=== PATIENT | male | born 1945 | race African-American/Black ===

== ENCOUNTER 2019-06-23 11:08 | Observation (INO) ==
[2019-06-23] MEDS ORDERED: COCAINE SUBSTITUTE 30 ML BOTTLE TOP ONE (11:31)
[2019-06-23] MEDS ORDERED: SILVER NITRATE STICK 1 EACH TOP STA (11:58)
[2019-06-23 11:59] LABS: Eosinophils # 0.1 10*3/uL (0.0-0.87); Eosinophils % 3.9 % (0.00-10.9); Hematocrit 24.5 VOL% (42.0-52.0); Immature Granulocytes % 0.5 %; Immature Granulocytes Absolute 0.01 #; Lymphocytes # 0.6 10*3/uL (1.4-4.0); Mean Corpuscular HGB Conc 32.7 GM/DL (32-36); Mean Corpuscular Volume 92.5 FL (87-102); Mean Platelet Volume 9.2 FL (9.6-12.0); Monocytes % 19.3 % (1.7-12.7); Neutrophils % 47.3 % (38.7-73.9); Platelet Count 110 T/CUMM (130-400); Red Blood Count 2.65 MC/CUMM (3.8-5.5); Red Cell Distribution Width 13.9 % (9.3-17.3); White Blood Count 2.1 T/CUMM (4-12)
[2019-06-23 12:11] LABS: Calcium 9.3 MG/DL (8.5-10.1); Osmolality,Calculated 279.8 MOS/KG (273-304)
[2019-06-23 12:25] LABS: Atypical Lymphocytes Few; Eosinophils 4 % (0-10); Hypochromasia 1+; Lymphocytes 25 % (20-55); Segmented Neutrophils 52 % (50-85); Total Cells Counted 100
[2019-06-23 12:26] LABS: Microcytosis Slight; Ovalocytes Slight; Polychromasia Slight
[2019-06-23 12:27] LABS: Platelet Estimate Adequate
[2019-06-23] MEDS ORDERED: guaiFENesin/CODEINE 5 ML LIQUID PO PRN (14:38)
[2019-06-23] MEDS ORDERED: traMADol 50 MG TABLET PO PRN (14:38)
[2019-06-23] MEDS ORDERED: DOCUSATE SODIUM 100 MG CAPSULE PO PRN (14:38)
[2019-06-23] MEDS ORDERED: PROCHLORPERAZINE 10 MG TABLET PO PRN (14:38)
[2019-06-23] MEDS ORDERED: FILGRASTIM-SNDZ 300 MCG/0.5 ML SYRINGE SUBCUT ONE (14:43)
[2019-06-23] MEDS ORDERED: SODIUM CHLORIDE 0.9% 1,000 ML IV PRN ×2 (14:45→22:15)
[2019-06-23] MEDS ORDERED: diphenhydrAMINE CAP 25 MG CAPSULE PO STA ×2 (14:45→22:51)
[2019-06-23] MEDS ORDERED: hydrALAZINE 25 MG TABLET PO SCH ×2 (15:00→21:00)
[2019-06-23] MEDS ORDERED: FUROSEMIDE 20 MG/2 ML VIAL IV ONE ×2 (15:00→22:57)
[2019-06-23] MEDS ORDERED: ACETAMINOPHEN 325 MG TABLET PO ONE (15:00)
[2019-06-23] MEDS ORDERED: GLUCAGON 1 MG VIAL IM PRN (15:33)
[2019-06-23] MEDS ORDERED: DEXTROSE 10% 250 ML BAG IV PRN (15:33)
[2019-06-23] MEDS: INSULIN REGULAR 100 UNIT/ML SUBCUT SCH ×2 (16:59→21:22)
[2019-06-23] MEDS: FILGRASTIM-SNDZ 300 MCG/0.5 ML SYRINGE SUBCUT SCH ×2 (17:34→17:36)
[2019-06-23] MEDS: GABAPENTIN 300 MG CAPSULE PO SCH ×2 (17:39→21:20)
[2019-06-23] MEDS ORDERED: ASPIRIN EC 81 MG TABLET PO SCH (21:00)
[2019-06-23] MEDS: MAGNESIUM CHLORIDE 64 MG TABLET PO SCH (21:20)
[2019-06-23] MEDS: PANTOPRAZOLE 40 MG TABLET PO SCH (21:20)
[2019-06-23] MEDS: carvediloL 25 MG TABLET PO SCH (21:20)
[2019-06-23] MEDS: LIOTHYRONINE 25 MCG TABLET PO SCH (21:20)
[2019-06-23] MEDS ORDERED: ACETAMINOPHEN 325 MG TABLET PO STA (22:54)
[2019-06-24 03:08] LABS: Alanine Aminotransferase 14 U/L (16-61); Albumin 2.6 G/DL (3.4-5.0); Alkaline Phosphatase 48 U/L (45-117); Aspartate Amino Transferase 10 U/L (0-37); Bilirubin,Total < 0.39 MG/DL (0.2-1.0); Blood Urea Nitrogen 22 MG/DL (7-18); Calcium 8.7 MG/DL (8.5-10.1); Estimated Glom Filtration Rate 109 ML/MIN; Glucose 138 MG/DL (74-106); Osmolality,Calculated 281.5 MOS/KG (273-304); Total Protein 6.3 G/DL (6.4-8.3)
[2019-06-24 03:47] LABS: Apearance,Urine CLEAR (Clear); Bacteria,Urine Occasional /HPF (Few); Bilirubin,Urine Negative (Negative); Blood, Urine Negative (Negative); Glucose,Urine (UA) Negative (Negative); Ketones,Urine Negative (Negative); Mucus,Urine Occasional /LPF (Occasional); Nitrite,Urine Negative (Negative); Protein,Urine Negative; RBC,Urine 4 /HPF (0-4); Urine Color Straw (Yellow); Urine Specific Gravity 1.008 (1.001-1.035); Urine Urobilinogen < 2.0 EU/DL (0.2-1.0); WBC,Urine <1 /HPF (0-6)
[2019-06-24 06:04] LABS: Eosinophils # 0.1 10*3/uL (0.0-0.87); Eosinophils % 2.7 % (0.00-10.9); Hematocrit 29.2 VOL% (42.0-52.0); Hemoglobin 9.5 GM/DL (14.0-18.0); Immature Granulocytes % 1.1 %; Immature Granulocytes Absolute 0.03 #; Lymphocytes # 0.5 10*3/uL (1.4-4.0); Mean Corpuscular HGB Conc 32.5 GM/DL (32-36); Mean Corpuscular Volume 92.1 FL (87-102); Mean Platelet Volume 9.4 FL (9.6-12.0); Monocytes % 15.7 % (1.7-12.7); Neutrophils % 62.5 % (38.7-73.9); Platelet Count 101 T/CUMM (130-400); Red Blood Count 3.17 MC/CUMM (3.8-5.5); Red Cell Distribution Width 14.3 % (9.3-17.3); White Blood Count 2.6 T/CUMM (4-12)
[2019-06-24 06:29] LABS: % Iron Saturation 27.5 % (18-50); Ferritin 670.9 ng/ml (26-388)
[2019-06-24 06:30] LABS: Band Neutrophils 1 % (0-10); Eosinophils 5 % (0-10); Hypochromasia 1+; Lymphocytes 20 % (20-55); Segmented Neutrophils 58 % (50-85); Total Cells Counted 100
[2019-06-24 06:31] LABS: Microcytosis Slight; Ovalocytes Slight; Platelet Estimate Decreased
[2019-06-24 06:42] LABS: Folate 17.6 NG/ML (5.4-24.0); Vitamin B12 1637 PG/ML (211-911)
[2019-06-24] MEDS ORDERED: IRON SUCROSE 300 MG in SODIUM CHLORIDE 0.9% 100 ML IV ONE (08:00)
[2019-06-24 08:08] LABS: Sedimentation Rate-Westergren 93 MM/HR (0-20)
[2019-06-24 08:09] LABS: Risk Ratio 3.19; Thyroid Stimulating Hormone 1.79 uIU/ml (0.358-3.74)
[2019-06-24] MEDS ORDERED: DOXAZOSIN 4 MG TABLET PO SCH (09:00)
[2019-06-24] MEDS ORDERED: PIOGLITAZONE 15 MG TABLET PO SCH (09:00)
[2019-06-24] MEDS ORDERED: BICALUTAMIDE 50 MG TABLET PO SCH (09:00)
[2019-06-24] MEDS ORDERED: SERTRALINE 50 MG TABLET PO SCH (09:00)
[2019-06-24] MEDS ORDERED: CHOLECALCIFEROL 1,000 UNIT TABLET PO SCH (09:00)
[2019-06-24] MEDS ORDERED: ROSUVASTATIN 20 MG TABLET PO SCH ×2 (09:00→09:04)
[2019-06-24] MEDS ORDERED: PANTOPRAZOLE 40 MG TABLET PO SCH (09:00)
[2019-06-24] MEDS ORDERED: OLMESARTAN 20 MG TABLET PO SCH (09:00)
[2019-06-24] MEDS ORDERED: SPIRONOLACTONE 25 MG TABLET PO SCH (09:00)
[2019-06-24] MEDS ORDERED: CHLORTHALIDONE 25 MG TABLET PO SCH (09:00)
[2019-06-24] MEDS ORDERED: ASCORBIC ACID 500 MG TABLET PO SCH (09:00)
[2019-06-24] MEDS ORDERED: CETIRIZINE 10 MG TABLET PO SCH (09:00)
[2019-06-24] MEDS ORDERED: ENZALUTAMIDE 40 MG PO SCH (09:00)
[2019-06-24] MEDS: INSULIN REGULAR 100 UNIT/ML SUBCUT SCH ×2 (09:05→12:57)
[2019-06-24] MEDS ORDERED: MAGNESIUM SULF RIDER 2 GM in PREMIX 1 EACH IV ONE (09:06)
[2019-06-24] MEDS: MAGNESIUM CHLORIDE 64 MG TABLET PO SCH (09:06)
[2019-06-24] MEDS: GABAPENTIN 300 MG CAPSULE PO SCH (09:06)
[2019-06-24] MEDS: PANTOPRAZOLE 40 MG TABLET PO SCH (09:08)
[2019-06-24] MEDS: LIOTHYRONINE 25 MCG TABLET PO SCH (09:08)
[2019-06-24] MEDS: carvediloL 25 MG TABLET PO SCH (09:08)
[2019-06-24] MEDS: FILGRASTIM-SNDZ 300 MCG/0.5 ML SYRINGE SUBCUT SCH ×2 (09:20→11:21)
[2019-06-24] MEDS ORDERED: COENZYME Q10 100 MG CAPSULE PO SCH (09:30)
[2019-06-24] MEDS ORDERED: FILGRASTIM-SNDZ 300 MCG/0.5 ML SYRINGE SUBCUT SCH (11:00)
[2019-06-24 13:13] VITALS: BP 140/62
[2019-06-24 15:51] LABS: PT Patient Result 10.5 SECS (9.6-12.2)
[2019-06-25 10:48] LABS: Hemoglobin A1 (Alkaline) 97.5 % (96.5-98.5); Hemoglobin A2 (Alkaline) 2.5 % (1.5-3.5)
== END 2019-06-24 15:00 | disposition home or self-care (01) ==
LOC: N.ED 11:08 → N.EDINP 11:08 → N.2W 15:25
PROVIDERS: ADMIT Hospitalist; ATTEND Hospitalist

== ENCOUNTER 2020-05-15 17:50 | Observation (INO) ==
[2020-05-15] MEDS ORDERED: ACETAMINOPHEN 500 MG TABLET PO STA (18:25)
[2020-05-15] MEDS ORDERED: SODIUM CHLORIDE 0.9% 1,000 ML IV STA (18:25)
[2020-05-15 18:31] LABS: Basophils % 0.7 % (0.0-0.8); Hematocrit 30.2 VOL% (42.0-52.0); Lymphocytes # 0.5 10*3/uL (1.4-4.0); Mean Corpuscular HGB Conc 33.1 GM/DL (32-36); Mean Corpuscular Volume 89.6 FL (87-102); Monocytes % 16.3 % (1.7-12.7); Platelet Count 121 T/CUMM (130-400); Red Blood Count 3.37 MC/CUMM (3.8-5.5); White Blood Count 1.4 T/CUMM (4-12)
[2020-05-15 19:09] LABS: Alanine Aminotransferase 23 U/L (16-61); Albumin 3.1 G/DL (3.4-5.0); Alkaline Phosphatase 52 U/L (45-117); Aspartate Amino Transferase 23 U/L (0-37); Bilirubin,Total < 0.39 MG/DL (0.2-1.0); Blood Urea Nitrogen 38 MG/DL (7-18); Calcium 8.7 MG/DL (8.5-10.1); Estimated Glom Filtration Rate 49 ML/MIN; Glucose 181 MG/DL (74-106); Osmolality,Calculated 279.4 MOS/KG (273-304); Total Protein 7.7 G/DL (6.4-8.3)
[2020-05-15 19:51] LABS: Band Neutrophils 1 % (0-10); Lymphocytes 34 % (20-55); Metamyelocytes 1 %; Segmented Neutrophils 54 % (50-85); Smudge Cells Few; Total Cells Counted 100
[2020-05-15 19:53] LABS: Platelet Estimate Adequate
[2020-05-15 20:48] LABS: Amorphous Crystals,Urine Occasional /HPF (Few); Bilirubin,Urine Negative (Negative); Blood, Urine Small mg/dL (Negative); Glucose,Urine (UA) Negative (Negative); Ketones,Urine Negative (Negative); Mucus,Urine Occasional /LPF (Occasional); Nitrite,Urine Negative (Negative); Protein,Urine 100 MG/DL; RBC,Urine 8 /HPF (0-4); Urine Appearance CLOUDY (Clear); Urine Color Yellow (Yellow); Urine Specific Gravity 1.014 (1.001-1.035); Urine Urobilinogen < 2.0 EU/DL (0.2-1.0)
[2020-05-15] MEDS ORDERED: PIPERACILLIN/TAZOBACTAM 3,375 MG in SODIUM CHLORIDE 0.9% 100 ML IV STA ×2 (21:11→21:32)
[2020-05-15] MEDS ORDERED: VANCOMYCIN INJ 1,000 MG in SODIUM CHLORIDE 0.9% 250 ML IV STA (21:32)
[2020-05-15] MEDS ORDERED: DEXTROSE 50% 25 GM/50 ML VIAL IV PRN (22:27)
[2020-05-15] MEDS ORDERED: GLUCAGON 1 MG VIAL IM PRN (22:27)
[2020-05-15] MEDS ORDERED: DEXTROSE 50% 25 GM/50 ML SYRINGE IV PRN (22:27)
[2020-05-15] MEDS ORDERED: ZALEPLON 5 MG CAPSULE PO PRN (22:27)
[2020-05-15] MEDS ORDERED: MEROPENEM 2,000 MG in SODIUM CHLORIDE 0.9% 100 ML IV ONE (23:13)
[2020-05-16] MEDS ORDERED: traMADol 50 MG TABLET PO PRN (02:07)
[2020-05-16] MEDS ORDERED: DOCUSATE SODIUM 100 MG CAPSULE PO PRN (02:07)
[2020-05-16] MEDS ORDERED: SODIUM CHLORIDE 0.9% 1,000 ML IV SCH (03:00)
[2020-05-16] MEDS ORDERED: MEROPENEM 500 MG in SODIUM CHLORIDE 0.9% 100 ML IV SCH (06:00)
[2020-05-16 07:47] LABS: Hematocrit 25.8 VOL% (42.0-52.0); Hemoglobin 8.2 GM/DL (14.0-18.0); Immature Granulocytes % 0.6 %; Immature Granulocytes Absolute 0.01 #; Lymphocytes # 0.5 10*3/uL (1.4-4.0); Lymphocytes % 33.3 % (21.2-54.2); Mean Corpuscular HGB Conc 31.8 GM/DL (32-36); Mean Corpuscular Volume 90.5 FL (87-102); Mean Platelet Volume 9.2 FL (9.6-12.0); Monocytes % 16.7 % (1.7-12.7); Neutrophils % 49.4 % (38.7-73.9); Platelet Count 124 T/CUMM (130-400); Red Blood Count 2.85 MC/CUMM (3.8-5.5); White Blood Count 1.6 T/CUMM (4-12)
[2020-05-16 08:09] LABS: Albumin 2.7 G/DL (3.4-5.0); Bilirubin,Total 1.4 MG/DL (0.2-1.0); Calcium 8.9 MG/DL (8.5-10.1); Osmolality,Calculated 281.7 MOS/KG (273-304); Total Protein 6.9 G/DL (6.4-8.3)
[2020-05-16 08:18] LABS: Band Neutrophils 2 % (0-10); Lymphocytes 28 % (20-55); Segmented Neutrophils 57 % (50-85); Total Cells Counted 100
[2020-05-16 08:19] LABS: Hypochromasia 1+; Microcytosis Slight; Ovalocytes Few
[2020-05-16 08:20] LABS: Platelet Estimate Adequate
[2020-05-16] MEDS: INSULIN REGULAR 100 UNIT/ML SUBCUT SCH ×4 (08:31→22:41)
[2020-05-16] MEDS: ROSUVASTATIN 20 MG TABLET PO SCH (10:17)
[2020-05-16] MEDS: CHOLECALCIFEROL 1,000 UNIT TABLET PO SCH (10:17)
[2020-05-16] MEDS: CHLORTHALIDONE 25 MG TABLET PO SCH (11:09)
[2020-05-16] MEDS: SPIRONOLACTONE 25 MG TABLET PO SCH (11:09)
[2020-05-16] MEDS: OLMESARTAN 20 MG TABLET PO SCH (11:09)
[2020-05-16] MEDS: carvediloL 25 MG TABLET PO SCH ×2 (11:09→16:19)
[2020-05-16] MEDS: GABAPENTIN 300 MG CAPSULE PO SCH ×3 (11:10→20:59)
[2020-05-16] MEDS: PANTOPRAZOLE 40 MG TABLET PO SCH (11:10)
[2020-05-16] MEDS: ASCORBIC ACID 500 MG TABLET PO SCH (11:11)
[2020-05-16] MEDS: MAGNESIUM CHLORIDE 64 MG TABLET PO SCH ×2 (11:11→20:59)
[2020-05-16] MEDS: FILGRASTIM-SNDZ 300 MCG/0.5 ML SYRINGE SUBCUT SCH (11:31)
[2020-05-16] MEDS: MEROPENEM 500 MG in SODIUM CHLORIDE 0.9% 100 ML IV SCH ×3 (11:31→23:10)
[2020-05-16] MEDS: ACETAMINOPHEN 325 MG TABLET PO PRN (13:53)
[2020-05-17] MEDS: ACETAMINOPHEN 325 MG TABLET PO PRN (03:09)
[2020-05-17 05:47] LABS: Basophils % 0.2 % (0.0-0.8); Eosinophils % 0.2 % (0.00-10.9); Hematocrit 24.9 VOL% (42.0-52.0); Immature Granulocytes Absolute 0.05 #; Lymphocytes # 0.6 10*3/uL (1.4-4.0); Lymphocytes % 12.1 % (21.2-54.2); Mean Corpuscular HGB Conc 32.1 GM/DL (32-36); Mean Corpuscular Volume 91.5 FL (87-102); Mean Platelet Volume 9.8 FL (9.6-12.0); Monocytes % 6.1 % (1.7-12.7); Neutrophils % 80.4 % (38.7-73.9); Platelet Count 118 T/CUMM (130-400); Red Blood Count 2.72 MC/CUMM (3.8-5.5); Red Cell Distribution Width 14.1 % (9.3-17.3); White Blood Count 4.9 T/CUMM (4-12)
[2020-05-17 06:07] LABS: Calcium 8.4 MG/DL (8.5-10.1); Osmolality,Calculated 281.7 MOS/KG (273-304)
[2020-05-17] MEDS: INSULIN REGULAR 100 UNIT/ML SUBCUT SCH ×4 (07:19→20:38)
[2020-05-17 07:38] LABS: Anisocytosis 1+; Band Neutrophils 30 % (0-10); Lymphocytes 13 % (20-55); Platelet Estimate Adequate; Poikilocytosis Slight; Segmented Neutrophils 53 % (50-85); Total Cells Counted 100
[2020-05-17 07:39] LABS: Polychromasia Slight
[2020-05-17] MEDS: ROSUVASTATIN 20 MG TABLET PO SCH (08:13)
[2020-05-17] MEDS: GABAPENTIN 300 MG CAPSULE PO SCH ×3 (08:14→20:30)
[2020-05-17] MEDS: CHLORTHALIDONE 25 MG TABLET PO SCH (08:14)
[2020-05-17] MEDS: MAGNESIUM CHLORIDE 64 MG TABLET PO SCH ×2 (08:14→20:30)
[2020-05-17] MEDS: CHOLECALCIFEROL 1,000 UNIT TABLET PO SCH (08:14)
[2020-05-17] MEDS: SPIRONOLACTONE 25 MG TABLET PO SCH (08:14)
[2020-05-17] MEDS: OLMESARTAN 20 MG TABLET PO SCH (08:15)
[2020-05-17] MEDS: carvediloL 25 MG TABLET PO SCH ×2 (08:15→16:54)
[2020-05-17] MEDS: PANTOPRAZOLE 40 MG TABLET PO SCH (08:15)
[2020-05-17] MEDS: ASCORBIC ACID 500 MG TABLET PO SCH (08:15)
[2020-05-17] MEDS: FILGRASTIM-SNDZ 300 MCG/0.5 ML SYRINGE SUBCUT SCH (08:16)
[2020-05-17] MEDS: MEROPENEM 500 MG in SODIUM CHLORIDE 0.9% 100 ML IV SCH ×3 (09:23→23:20)
[2020-05-18] MEDS: ACETAMINOPHEN 325 MG TABLET PO PRN (00:10)
[2020-05-18 06:03] LABS: Basophils % 0.2 % (0.0-0.8); Eosinophils % 0.4 % (0.00-10.9); Hematocrit 25.9 VOL% (42.0-52.0); Hemoglobin 8.3 GM/DL (14.0-18.0); Immature Granulocytes % 13.7 %; Immature Granulocytes Absolute 1.14 #; Lymphocytes # 0.9 10*3/uL (1.4-4.0); Lymphocytes % 11.2 % (21.2-54.2); Mean Corpuscular Volume 91.5 FL (87-102); Mean Platelet Volume 9.9 FL (9.6-12.0); Monocytes % 6.6 % (1.7-12.7); Neutrophils % 67.9 % (38.7-73.9); Platelet Count 119 T/CUMM (130-400); Red Blood Count 2.83 MC/CUMM (3.8-5.5); Red Cell Distribution Width 13.9 % (9.3-17.3); White Blood Count 8.3 T/CUMM (4-12)
[2020-05-18 06:18] LABS: Calcium 8.7 MG/DL (8.5-10.1); Osmolality,Calculated 280.7 MOS/KG (273-304)
[2020-05-18 06:48] LABS: Anisocytosis 1+; Band Neutrophils 26 % (0-10); Lymphocytes 6 % (20-55); Metamyelocytes 4 %; Platelet Estimate Adequate; Segmented Neutrophils 55 % (50-85); Total Cells Counted 100
[2020-05-18 06:49] LABS: Macrocytosis Slight; Tear Drop Cells Few
[2020-05-18] MEDS: INSULIN REGULAR 100 UNIT/ML SUBCUT SCH ×2 (07:44→11:02)
[2020-05-18] MEDS: ASCORBIC ACID 500 MG TABLET PO SCH (08:59)
[2020-05-18] MEDS: carvediloL 25 MG TABLET PO SCH (08:59)
[2020-05-18] MEDS: OLMESARTAN 20 MG TABLET PO SCH (08:59)
[2020-05-18] MEDS: MAGNESIUM CHLORIDE 64 MG TABLET PO SCH (09:00)
[2020-05-18] MEDS: ROSUVASTATIN 20 MG TABLET PO SCH (09:00)
[2020-05-18] MEDS: GABAPENTIN 300 MG CAPSULE PO SCH (09:00)
[2020-05-18] MEDS: SPIRONOLACTONE 25 MG TABLET PO SCH (09:00)
[2020-05-18] MEDS: PANTOPRAZOLE 40 MG TABLET PO SCH (09:00)
[2020-05-18] MEDS: CHLORTHALIDONE 25 MG TABLET PO SCH (09:01)
[2020-05-18] MEDS: CHOLECALCIFEROL 1,000 UNIT TABLET PO SCH (09:01)
[2020-05-18] MEDS: FILGRASTIM-SNDZ 300 MCG/0.5 ML SYRINGE SUBCUT SCH (09:35)
[2020-05-18] MEDS: MEROPENEM 500 MG in SODIUM CHLORIDE 0.9% 100 ML IV SCH (09:40)
[2020-05-18 12:19] VITALS: BP 108/50
== END 2020-05-18 15:11 | disposition home or self-care (01) ==
LOC: N.EDINP 17:50 → N.ED 17:50 → N.3E 23:44
PROVIDERS: ADMIT Internal Medicine; ATTEND Internal Medicine

== ENCOUNTER 2021-03-28 10:08 | Observation (INO) ==
[2021-03-28] MEDS ORDERED: LACTATED RINGERS 1,000 ML IV ONE (10:46)
[2021-03-28 11:33] LABS: Basophils % 0.2 % (0.0-0.8); Eosinophils # 0.1 10*3/uL (0.0-0.87); Eosinophils % 1.9 % (0.00-10.9); Hematocrit 24.9 VOL% (42.0-52.0); Hemoglobin 7.6 GM/DL (14.0-18.0); Immature Granulocytes % 0.2 %; Immature Granulocytes Absolute 0.01 #; Lymphocytes # 0.6 10*3/uL (1.4-4.0); Lymphocytes % 14.5 % (21.2-54.2); Mean Corpuscular HGB Conc 30.5 GM/DL (32-36); Mean Corpuscular Volume 97.3 FL (87-102); Mean Platelet Volume 9.4 FL (9.6-12.0); Monocytes % 17.8 % (1.7-12.7); Neutrophils % 65.4 % (38.7-73.9); Platelet Count 121 T/CUMM (130-400); Red Blood Count 2.56 MC/CUMM (3.8-5.5); Red Cell Distribution Width 14.7 % (9.3-17.3); White Blood Count 4.2 T/CUMM (4-12)
[2021-03-28 11:59] LABS: Amorphous Crystals,Urine Few /HPF (Few); Bacteria,Urine Occasional /HPF (Few); Bilirubin,Urine Negative (Negative); Blood, Urine Large mg/dL (Negative); Glucose,Urine (UA) >=500 mg/dL (Negative); Ketones,Urine Negative (Negative); Mucus,Urine Occasional /LPF (Occasional); Nitrite,Urine Negative (Negative); Protein,Urine 30 MG/DL; RBC,Urine 4 /HPF (0-4); Squamous Epithelial Cell,Urine Occasional /HPF (0-10); Urine Appearance CLOUDY (Clear); Urine Color Yellow (Yellow); Urine Specific Gravity 1.015 (1.001-1.035); Urine Urobilinogen < 2.0 EU/DL (0.2-1.0)
[2021-03-28 12:32] LABS: Eosinophils 3 % (0-10); Hypochromasia Slight; Lymphocytes 15 % (20-55); Segmented Neutrophils 72 % (50-85); Total Cells Counted 100
[2021-03-28 12:33] LABS: Macrocytosis Slight; Ovalocytes Slight
[2021-03-28 12:34] LABS: Platelet Estimate Adequate
[2021-03-28 12:35] LABS: Alanine Aminotransferase 25 U/L (16-61); Albumin 3.2 G/DL (3.4-5.0); Alkaline Phosphatase 46 U/L (45-117); Aspartate Amino Transferase 36 U/L (0-37); Bilirubin,Total < 0.39 MG/DL (0.20-1.00); Blood Urea Nitrogen 32 MG/DL (7-18); Calcium 9.2 MG/DL (8.5-10.1); Carbon Dioxide 21 MMOL/L (21-32); Estimated Glom Filtration Rate 41 ML/MIN; Glucose 218 MG/DL (74-106); Osmolality,Calculated 286.8 MOS/KG (273-304); Sodium 137 MMOL/L (136-145); Total Protein 7.5 G/DL (6.4-8.2)
[2021-03-28] MEDS ORDERED: ACETAMINOPHEN 325 MG TABLET PO PRN (13:54)
[2021-03-28] MEDS ORDERED: CALCIUM CARBONATE CHEW 500 MG TABLET PO PRN (13:54)
[2021-03-28] MEDS ORDERED: GLUCAGON 1 MG VIAL IM PRN (13:54)
[2021-03-28] MEDS ORDERED: DEXTROSE 50% 25 GM/50 ML VIAL IV PRN (13:54)
[2021-03-28] MEDS ORDERED: ONDANSETRON 4 MG/2 ML VIAL IV PRN (13:54)
[2021-03-28] MEDS ORDERED: DOCUSATE SODIUM 100 MG CAPSULE PO PRN (13:57)
[2021-03-28] MEDS ORDERED: SODIUM CHLORIDE 0.9% 1,000 ML IV PRN (14:00)
[2021-03-28] MEDS ORDERED: ENOXAPARIN 40 MG/0.4 ML SYRINGE SUBCUT SCH (14:00)
[2021-03-28] MEDS ORDERED: PROCHLORPERAZINE 5 MG TABLET PO PRN (14:48)
[2021-03-28] MEDS: GABAPENTIN 300 MG CAPSULE PO SCH ×2 (15:58→21:30)
[2021-03-28] MEDS: INSULIN REGULAR 100 UNIT/ML SUBCUT SCH ×2 (18:20→21:30)
[2021-03-28] MEDS: LACTATED RINGERS 1,000 ML IV SCH (20:05)
[2021-03-28] MEDS ORDERED: ROSUVASTATIN 20 MG TABLET PO SCH (21:00)
[2021-03-28] MEDS: carvediloL 12.5 MG TABLET PO SCH (21:30)
[2021-03-29 06:04] LABS: Basophils % 0.3 % (0.0-0.8); Eosinophils # 0.1 10*3/uL (0.0-0.87); Eosinophils % 2.7 % (0.00-10.9); Hematocrit 25.5 VOL% (42.0-52.0); Hemoglobin 8.1 GM/DL (14.0-18.0); Immature Granulocytes % 0.3 %; Immature Granulocytes Absolute 0.01 #; Lymphocytes # 0.4 10*3/uL (1.4-4.0); Lymphocytes % 13.1 % (21.2-54.2); Mean Corpuscular HGB Conc 31.8 GM/DL (32-36); Mean Corpuscular Volume 94.4 FL (87-102); Mean Platelet Volume 9.1 FL (9.6-12.0); Monocytes % 17.1 % (1.7-12.7); Neutrophils % 66.5 % (38.7-73.9); Platelet Count 100 T/CUMM (130-400); Red Cell Distribution Width 14.7 % (9.3-17.3); White Blood Count 3.3 T/CUMM (4-12)
[2021-03-29 06:28] LABS: Calcium 8.8 MG/DL (8.5-10.1); Osmolality,Calculated 283.4 MOS/KG (273-304)
[2021-03-29 06:44] LABS: Eosinophils 2 % (0-10); Lymphocytes 20 % (20-55); Segmented Neutrophils 60 % (50-85); Total Cells Counted 100
[2021-03-29 06:45] LABS: Hypochromasia 1+; Microcytosis 1+; Ovalocytes Slight; Tear Drop Cells Slight
[2021-03-29 06:46] LABS: Platelet Estimate Decreased
[2021-03-29] MEDS: INSULIN REGULAR 100 UNIT/ML SUBCUT SCH (08:09)
[2021-03-29] MEDS: GABAPENTIN 300 MG CAPSULE PO SCH (08:28)
[2021-03-29] MEDS: carvediloL 12.5 MG TABLET PO SCH (08:28)
[2021-03-29] MEDS: LACTATED RINGERS 1,000 ML IV SCH (08:32)
[2021-03-29 08:43] VITALS: BP 128/51
[2021-03-29] MEDS ORDERED: SPIRONOLACTONE 25 MG TABLET PO SCH (09:00)
[2021-03-29] MEDS ORDERED: SERTRALINE 50 MG TABLET PO SCH (09:00)
[2021-03-29] MEDS ORDERED: predniSONE 5 MG TABLET PO SCH (09:00)
[2021-03-29] MEDS ORDERED: ISOSORBIDE MONONITRATE 30 MG TABLET PO SCH (09:00)
[2021-03-29] MEDS ORDERED: OLMESARTAN 20 MG TABLET PO SCH (09:00)
[2021-03-29] MEDS ORDERED: PANTOPRAZOLE 40 MG TABLET PO SCH (09:00)
== END 2021-03-29 09:45 | disposition home or self-care (01) ==
LOC: N.EDINP 10:08 → N.ED 10:08 → N.2W 14:44
PROVIDERS: ADMIT Internal Medicine Geriatric Medicine; ATTEND Internal Medicine Geriatric Medicine